=== PATIENT | female | born 1985 | race African-American/Black ===

== ENCOUNTER 2017-04-22 02:39 | Emergency (ER) | payer OTHER ==
[~2017-04-22] VITALS: Ht 157.5 cm; Wt 77.1 kg
[2017-04-22] MEDS ORDERED: SODIUM CHLORIDE 0.9% 250 ML IV ONE (08:30)
[2017-04-22 09:39] LABS: Basophils # (auto) 0 uL; Basophils % (auto) 0.1 % (0.0-2.0); Eosinophils # (auto) 0 uL; Eosinophils % (auto) 0.1 % (0.0-7.0); Hematocrit 44.8 % (36.0-46.0); Lymphocytes # (auto) 1.5 uL; Lymphocytes % (auto) 8.1 % (10.0-50.0); Mean Corpuscular Hemoglobin 30.9 pg (28.0-32.0); Mean Corpuscular Hgb Conc. 33.6 g/dL (32.0-36.0); Monocytes % (auto) 5.2 % (0.0-12.0); Neutrophils # (auto) 16.5 uL; Neutrophils % (auto) 86.5 % (37.0-80.0); Nucleated Red Blood Cells % 0.1 %; Platelet Count (auto) 172 10^3/uL (140-450); Red Blood Cells 4.87 10^6/uL (4.0-5.20); White Blood Cell 19.1 10^3/uL (4.4-10.8)
[2017-04-22 09:49] LABS: Albumin 4.3 g/dL (3.4-5.0); BUN/Creatinine Ratio 15.8; Calcium 9.2 mg/dL (8.5-10.1); Magnesium 2.4 mg/dL (1.6-2.6); Potassium 4.4 mmol/L (3.5-5.1)
[2017-04-22 09:52] LABS: Bilirubin, Total 0.3 mg/dL (0.2-1.0); INR 0.92 (0.9-1.15); Partial Thromboplastin Time 27.3 sec (22.64-33.71); Total Protein 8.3 g/dL (6.4-8.2)
[2017-04-22] MEDS ORDERED: IOHEXOL 300 MG/ML 100ML BOTTLE IJ ONE (10:56)
[2017-04-22 12:04] VITALS: BP 123/72
[2017-04-22] MEDS ORDERED: KETOROLAC TROMETH 30 MG/ML 1ML VIAL IV ONE (13:45)
== END 2017-04-22 14:54 | disposition home or self-care (01) ==
LOC: EDBD 02:39 → ER 02:43
DX: S52.601A Unspecified fracture of lower end of right ulna, initial encounter for closed fracture (principal); S29.9XXA Unspecified injury of thorax, initial encounter; M25.561 Pain in right knee; F17.210 Nicotine dependence, cigarettes, uncomplicated; D72.829 Elevated white blood cell count, unspecified; R74.8 Abnormal levels of other serum enzymes; R42 Dizziness and giddiness; V43.92XA Unspecified car occupant injured in collision with other type car in traffic accident, initial encounter; Y93.89 Activity, other specified; Y92.89 Other specified places as the place of occurrence of the external cause; Y99.8 Other external cause status
CPT/HCPCS: 29125; 36415; 70450; 71260; 72125; 73090; 74177; 80053; 81025; 83735; 84702; 85025; 85610; 85730; 93005; 94761; 96361; 96374; 99285; J1885; J7030; Q9967